=== PATIENT | male | born 1960 | race Caucasian/White ===

== ENCOUNTER → 2016-08-12 | Outpatient (CLI) | payer OTHER ==
--- NOTE | 2016-08-13 08:00 | US ---
EXAMINATION TYPE: US kidneys/renal and bladder DATE OF EXAM: 08/12/2016 4:18 PM COMPARISON: on PACS CLINICAL HISTORY: R10.9 Left Flank Pain. Left flank pain, no hx of renal stones EXAM MEASUREMENTS: Right Kidney: 10.5 x 5.1 x 5.0 cm Left Kidney: 13.7 x 6.6 x 6.7 cm There is no evidence for hydronephrosis at this point in time. Bilateral extrarenal pelvis is noted. No nephrolithiasis is seen. No masses are identified. The urinary bladder is anechoic. Bilateral ureteral jets are seen. IMPRESSION: Bilateral extrarenal pelvis. Otherwise unremarkable study.
== END | disposition home or self-care (01) ==
LOC: RADUSMAIN 15:51
PROVIDERS: ATTEND Family Medicine
DX: R93.421 Abnormal radiologic findings on diagnostic imaging of right kidney (principal); R93.422 Abnormal radiologic findings on diagnostic imaging of left kidney; R10.9 Unspecified abdominal pain
CPT/HCPCS: 76770

== ENCOUNTER → 2020-08-28 | Outpatient (CLI) | payer BC ==
--- NOTE | 2020-08-28 13:03 | US ---
EXAMINATION TYPE: US venous doppler duplex LE RT DATE OF EXAM: 08/28/2020 12:43 PM COMPARISON: NONE CLINICAL HISTORY: M79.661 Pain Rt Lower limb. Lateral calf pain. No redness. No swelling. Patient just had Covid. SIDE PERFORMED: Right TECHNIQUE: The lower extremity deep venous system is examined utilizing real time linear array sonog sandi with graded compression, doppler sonography and color-flow sonography. VESSELS IMAGED: Common Femoral Vein Deep Femoral Vein Greater Saphenous Vein * Femoral Vein Popliteal Vein Small Saphenous Vein * Proximal Calf Veins (* superficial vessels) Right Leg: Negative for DVT IMPRESSION: Grayscale, color doppler, spectral doppler imaging performed of the deep veins of the lo wer extremities. There is normal flow, compressibility, vascular waveforms.
== END | disposition home or self-care (01) ==
LOC: RADUSWWP 11:56
PROVIDERS: ATTEND Family Medicine
DX: M79.661 Pain in right lower leg (principal)

== ENCOUNTER → 2022-08-22 | Outpatient (CLI) | payer BC ==
--- NOTE | 2022-08-22 09:39 | MM ---
Reason for Exam: Clinical finding. Indicated Problems: Lump or thickening of the right side for 2 Month(s). Tissue Density: The breast tissue is almost entirely fat. Findings: Analyzed By CAD. Asymmetric mild flame-shaped density subareolar right breast in keeping with benign gynecomastia. Some dermal calcifications noted far posterior right MLO view. Otherwise, no significant mass or other discrete abnormality is seen. Overall Assessment: Benign, BI-RAD 2 Management: Clinical Management of the right breast in 1 year. For developing mild benign right-sided gynecomastia. Results were given to the patient verbally at the time of exam. Electronically signed and approved by: Fabiola Reynolds M.D. Radiologist
== END | disposition home or self-care (01) ==
LOC: RADMAMWWP 08:58
PROVIDERS: ATTEND Family Medicine
DX: R92.1 Mammographic calcification found on diagnostic imaging of breast (principal); N64.4 Mastodynia
CPT/HCPCS: 77062; 77066